=== PATIENT | female | born 1975 | race African-American/Black ===

== ENCOUNTER → 2016-06-29 | Outpatient (CLI) | payer MEDICARE, OTHER ==
--- NOTE | ~2016-06-29 | MY11 ---
[facility] A Service of [facility] RADIOLOGY TEXT RESULTS PATIENT: CLAIRE GARCIA LOCATION: [facility] : 73 UNIT #: [id number] AGE: [address]: Rajiv Nix MD SEX: F ORDER DR: [id number] [facility] [address] [facility] [place], [place] [address] [id number] O MR#: [id number] Acc #: [id number] NAME: CLAIRE GARCIA. : 1975 SEX: F STUDY DATE/TIME: 06/29/2016 10:09 UNIT: [facility] ROOM: STUDY DESCRIPTION: MY Mammogram Screening Dig Chavez Attending Physician: Rajiv Nix M.D. Ordering Physician: Rajiv Nix M.D. Primary Care Physician: Rajiv Nix M.D. MEDICAL IMAGING REPORT This report is preliminary unless electronic signature is present EXAM Bilateral digital screening mammogram with CAD COMPARISON None available. Patient reports having prior mammogram performed at [facility], but there is no record of such. There is also no record of prior mammograms performed at the [facility]. This will therefore serve as the patient's baseline mammogram. INDICATION Breast cancer screening. 40-year-old asymptomatic female who reports an aunt with breast cancer. FINDINGS There are scattered fibroglandular densities. There are no suspicious findings in either breast. IMPRESSION No mammographic evidence of malignancy. Continued annual screening mammography and clinical breast exam are recommended. Patients over the age of 40 are entered into a reminder system with target due date for the next mammogram. A result letter will also be sent to the patient. BIRADS: 1 Negative Dictated by... Brannon Dhillon M.D. THIS IS AN ELECTRONICALLY VERIFIED REPORT Brannon Dhillon M.D. at 07/03/2016 3:20 PM [email or web address] A Service of [facility] RADIOLOGY TEXT RESULTS PATIENT: CLAIRE GARCIA LOCATION: [facility] : 73 UNIT #: [id number] AGE: [address]: Rajiv Nix MD SEX: F ORDER DR: TD: 07/01/2016 13:03 JOB #: [id number] MEDICAL IMAGING REPORT Page 1 of 1 COPY
== END | disposition home or self-care (01) ==
LOC: CWCC 09:41
DX: Z12.31 Encounter for screening mammogram for malignant neoplasm of breast (principal)
CPT/HCPCS: G0202